=== PATIENT | male | born 1960 | race Caucasian/White ===

== ENCOUNTER 2020-02-05 04:58 | Emergency (ER) | payer OTHER ==
[2020-02-05] MEDS ORDERED: Acetaminophen/oxyCODONE 325-10 MG Tab PO ONE (05:46)
--- NOTE | 2020-02-05 06:23 | CT ---
INDICATION: Fall. LOC. Headache. COMPARISON: None TECHNIQUE: CT examination of the head was performed as axial sections without intravenous contrast. Images were obtained from the vertex of the skull through the skull base. Please note that all CT scans at this facility use dose modulation, iterative reconstruction, and/or weight-based dosing when appropriate to reduce radiation dose to as low as reasonably achievable. FINDINGS: The brain shows no sign of mass lesion, mass effect, hemorrhage, or edema. The ventricles and sulci are normal in appearance for the patient`s age. The visualized portions of the orbits are normal in appearance. The osseous structures are normal in their appearance with no sign of abnormality in the skull base or calvarium. IMPRESSION: Normal unenhanced head CT. Please note that all CT scans at this facility use dose modulation, iterative reconstruction, and/or weight-based dosing when appropriate to reduce radiation dose to as low as reasonably achievable. Dictated by Harsh Lorenzana MD @ Feb 05 2020 6:18AM Signed by Dr. Harsh Lorenzana @ Feb 05 2020 6:20AM
--- NOTE | 2020-02-05 06:25 | CT ---
INDICATION: Trauma. LOC. Neck pain COMPARISON: None TECHNIQUE: CT examination of the cervical spine is performed without contrast using spiral technique. Thin axial, sagittal and coronal reconstructions were made. Please note that all CT scans at this facility use dose modulation, iterative reconstruction, and/or weight-based dosing when appropriate to reduce radiation dose to as low as reasonably achievable. FINDINGS: : There is no malalignment. There is no lytic or blastic lesion, fracture or dislocation identified. Mild degenerative changes are noted. The lung apices appear normal. There are atherosclerotic vascular calcifications. IMPRESSION: No visible acute posttraumatic finding. Please note that all CT scans at this facility use dose modulation, iterative reconstruction, and/or weight-based dosing when appropriate to reduce radiation dose to as low as reasonably achievable. Dictated by Harsh Lorenzana MD @ Feb 05 2020 6:20AM Signed by Dr. Harsh Lorenzana @ Feb 05 2020 6:22AM
[2020-02-05 07:00] LABS: BLOOD UREA NITROGEN,BUN 21 mg/dL (7.0-18.0); CARBON DIOXIDE,CO2 25.7 mmol/L (21.0-32.0); CHLORIDE,CL 105 mmol/L (98-107); GLUCOSE RANDOM 114 mg/dL (74-106); POTASSIUM,K 3.9 mmol/L (3.5-5.1); SODIUM,NA 140 mmol/L (136-148)
[2020-02-05] MEDS ORDERED: Ibuprofen 600 MG Tab PO ONE (07:46)
[2020-02-05] MEDS ORDERED: Iopamidol 755 MG/ML 200 ML Multipack Bottle IVPUSH ONE (07:52)
--- NOTE | 2020-02-05 08:10 | CT ---
CT thoracic spine Technique: Multiple axial sections through the thoracic spine were obtained. Reconstructed coronal and sagittal images were obtained. Findings: Mild scattered endplate osteophytes are seen within the lower thoracic spine. Mild disc space narrowing seen within the lower thoracic spine. Vertebral body heights are maintained. No acute fracture line is appreciated. No abnormal subluxation is seen. No bony central canal stenosis is seen. Neural foramina show no bony stenosis. Impression: 1. Mild degenerative change. 2. Nothing acute is appreciated on CT study of the thoracic spine. Diagnostic code #2 Study was dictated in MDT
--- NOTE | 2020-02-05 08:13 | CT ---
CT lumbar spine Technique: Multiple axial sections through the lumbar spine were obtained. Reconstructed coronal and sagittal images were obtained. Comparison: No prior lumbar spine imaging. Findings: Mild disc space narrowing is noted at T10-T11 and T11-T12. Scattered endplate osteophytes are seen within the lower thoracic and lumbar spine. Vacuum phenomena is noted within the L5-S1 disc. No acute fracture line is seen. Degenerative apophyseal change is scattered within the lumbar spine. Vacuum phenomena is noted within the apophyseal joints at L2-3. No abnormal subluxation is appreciated. Impression: 1. Mild scattered degenerative change. 2. Nothing acute is appreciated on CT study of the lumbar spine. Diagnostic code #2 Study was dictated in MDT
--- NOTE | 2020-02-05 08:17 | CT ---
CT chest Technique: Multiple axial sections were obtained from above the lung apices inferiorly through the lung bases. Intravenous contrast was utilized. Reconstructed coronal and sagittal images were reviewed. Findings: Mediastinum and hilar regions show no adenopathy. Atherosclerotic calcifications seen within the thoracic aorta. Normal-sized lymph nodes seen within the pretracheal region. No pericardial thickening is seen. Visualized upper abdominal structures shows no discrete abnormality. No axillary adenopathy is appreciated. Lung window settings were reviewed. Mild dependent atelectasis is noted posteriorly within both lungs. Lungs otherwise are clear with no acute parenchymal change. Slight linear scarring is noted within the lingula. Bone window settings were reviewed. No discrete sternal fracture is appreciated. No rib fracture is appreciated. Impression: 1. Findings believed to be incidental as noted above. 2. Nothing acute is appreciated on CT study of the chest. Diagnostic code #2 Study was dictated in MDT
--- NOTE | 2020-02-05 08:31 | EDM.PDOC ---
ED HPI GENERAL MEDICAL PROBLEM - General Chief Complaint: Neck Problem Stated Complaint: FELL AT WORK AND LANDED ON HEAD Time Seen by Provider: 02/05/20 05:57 Source of Information: Reports: Patient History Limitations: Reports: No Limitations - History of Present Illness INITIAL COMMENTS - FREE TEXT/NARRATIVE: 59-year-old gentleman no medical problems presented to ER after he fell. 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 [place] back hit his head, after the fallLOC, got up dizzy then a worker found him. unclear how long he was down for. With the fall he developed chest pain and neck pain. no dyspnea. the pain in chest is right at the sternum. worst with movement and palpation. non radiating. the neck pain is not associated with weakness and numbness. he has not had any vomiting or vision changes. no other associated symptoms. neck/chest Pain Score (Numeric/FACES): 8 - Related Data Allergies Allergy/AdvReac Type Severity Reaction Status Date / Time No Known Allergies Allergy Verified 02/05/20 05:11 Home Meds: Home Meds Cyclobenzaprine [Flexeril] 5 mg PO Q6HR PRN #8 tab 02/05/20 [Rx] Ibuprofen 400 mg PO Q6HR PRN #30 tablet 02/05/20 [Rx] Past Medical History HEENT History: Reports: Cataract Cardiovascular History: Reports: Hypertension Respiratory History: Reports: None Gastrointestinal History: Reports: None Genitourinary History: Reports: None Musculoskeletal History: Reports: None Neurological History: Reports: None Psychiatric History: Reports: None Endocrine/Metabolic History: Reports: None Insulin Pump Model and Floral Arranger: None Hematologic History: Reports: None Immunologic History: Reports: None Oncologic (Cancer) History: Reports: None Dermatologic History: Reports: None - Infectious Disease History Infectious Disease History: Reports: None - Past Surgical History Head Surgeries/Procedures: Reports: None HEENT Surgical History: Reports: Cataract Surgery Musculoskeletal Surgical History: Reports: Hip Replacement, Other (See Below) Other Musculoskeletal Surgeries/Procedures:: Back Surgery Social & Family History - Family History Family Medical History: Noncontributory - Tobacco Use Smoking Status *Q: Never Smoker - Caffeine Use Caffeine Use: Reports: Tea - Recreational Drug Use Recreational Drug Use: No ED ROS GENERAL - Review of Systems Review Of Systems: Comprehensive ROS is negative, except as noted in HPI. ED EXAM, HEAD INJURY - Physical Exam Exam: See Below Exam Limited By: No Limitations General Appearance: Alert, WD/WN, No Apparent Distress Head: Normocephalic, Scalp Abrasions (occiput ) Nexus Criteria: No: Posterior, Midline Cervical Tenderness, Evidence of Intoxication, Altered Level of Consciousness, Focal Neurological Deficit, Painful Distraction Injuries Eyes: Bilateral Eye: EOMI, PERRL Ears: Normal External Exam Neck: Tenderness, Other (paraspinal tenderness ) Respiratory: No Respiratory Distress, Lungs Clear, Normal Breath Sounds, No Accessory Muscle Use, Other (tenderness to palpation over silver dollar size area in the mid sternum ) Cardiovascular: Normal Peripheral Pulses, Regular Rate, Rhythm, No Edema, No Gallop, No JVD, No Murmur, No Rub GI/Abdominal Exam: Soft, Non-Tender, No Distention Back Exam: Normal Inspection, Full Range of Motion, Paraspinal Tenderness (in the lumbar region ). No: CVA Tenderness (L), CVA Tenderness (R), Vertebral Tenderness Neurologic: No Motor/Sensory Deficits, Alert, Normal Mood/Affect, Oriented x 3. No: Abnormal Cerebellar Tests, Aphasia, Motor Weakness, Sensory Deficit Skin: Normal Color - [place] Coma Score Best Eye Response (Vandana): (4) Open Spontaneously Best Verbal Response ([place]): (5) Oriented Best Motor Response (Vandana): (6) Obeys Commands Vandana Total: 15 EKG INTERPRETATION Rhythm: NSR P-Wave: Present ST-T: Normal QT: Normal Course - Vital Signs Last Recorded V/S: Last Vital Signs Temp 97.9 F 02/05/20 05:00 Pulse 61 02/05/20 07:50 Resp 16 02/05/20 07:50 BP 158/93 H 02/05/20 07:50 Pulse Ox 97 02/05/20 07:50 - Orders/Labs/Meds Orders: Active Orders 24 hr Category Date Time Status EKG 12 Lead [EKG Documentation Completion] [RC] STAT Care 02/05/20 05:40 Active Labs: Laboratory Tests 02/05/20 02/05/20 Range/Units 06:15 06:15 WBC 7.86 (4.0-11.0) K/uL RBC 4.91 (4.50-5.90) M/uL Hgb 14.8 (13.0-17.0) g/dL Hct 44.3 (38.0-50.0) % MCV 90.2 (80.0-98.0) fL MCH 30.1 (27.0-32.0) pg MCHC 33.4 (31.0-37.0) g/dL RDW Std Deviation 43.6 (28.0-62.0) fl RDW Coeff of Sherrie 13 (11.0-15.0) % Plt Count 188 (150-400) K/uL MPV 11.70 (7.40-12.00) fL Neut % (Auto) 64.6 (48.0-80.0) % Lymph % (Auto) 20.2 (16.0-40.0) % [place] % (Auto) 12.7 (0.0-15.0) % Eos % (Auto) 1.9 (0.0-7.0) % Baso % (Auto) 0.6 (0.0-1.5) % Neut # (Auto) 5.1 (1.4-5.7) K/uL Lymph # (Auto) 1.6 (0.6-2.4) K/uL [place] # (Auto) 1.0 H (0.0-0.8) K/uL Eos # (Auto) 0.2 (0.0-0.7) K/uL Baso # (Auto) 0.1 (0.0-0.1) K/uL Nucleated RBC % 0.0 /100WBC Nucleated RBCs # 0 K/uL Sodium 140 (136-148) mmol/L Potassium 3.9 (3.5-5.1) mmol/L Chloride 105 (98-107) mmol/L Carbon Dioxide 25.7 (21.0-32.0) mmol/L BUN 21 H (7.0-18.0) mg/dL Creatinine 1.1 (0.8-1.3) mg/dL Est Cr Clr Drug Dosing 70.52 mL/min Estimated GFR (MDRD) > 60.0 ml/min Glucose 114 H (74-106) mg/dL Calcium 9.2 (8.5-10.1) mg/dL Total Bilirubin 0.6 (0.2-1.0) mg/dL AST 42 H (15-37) IU/L ALT 40 (14-63) IU/L Alkaline Phosphatase 57 (46-116) U/L Troponin I < 0.050 (0.000-0.056) ng/mL Total Protein 7.3 (6.4-8.2) g/dL Albumin 3.7 (3.4-5.0) g/dL Globulin 3.6 (2.6-4.0) g/dL Albumin/Globulin Ratio 1.0 (0.9-1.6) Meds: Medications Discontinued Medications Generic Name Dose Route Start Last Admin Trade Name Radha PRN Reason Stop Dose Admin Ibuprofen 600 mg 02/05/20 07:46 02/05/20 08:00 Motrin PO 02/05/20 07:47 600 mg ONETIME ONE Administration Iopamidol 75 ml 02/05/20 07:52 02/05/20 07:53 Isovue Multipack-370 (76%) IVPUSH 02/05/20 07:53 75 ml ONETIME ONE Administration Oxycodone/Acetaminophen 1 tab 02/05/20 05:46 02/05/20 06:14 Percocet 325-10 Mg PO 02/05/20 05:47 1 tab ONETIME ONE Administration - Re-Assessments/Exams Free Text/Narrative Re-Assessment/Exam: 02/05/20 08:50 after pain control patient felt much improved.imaging negative for any traumatic injuries. C spine without fractures, CTH no acute findings. CT chest nothing acute as well. no thoracic or lumbar fractures either. C collar cleared after the patient had negative imaging, normal neuro exam, and no midline ttp. had left sided paraspinal tenderness in ther cervical region. patient felt improved prior to discharge. return precautions were discussed. told him to return to ed if he devloped any weakness, numbness, wrosening chest pain, sob, worsening headache, vomiting, vision changes, changes in mental status, unbearable pain, incontinence or if he had any concerns. the chest discomfort was unlikely to be cardiac likely from a contusion or muscle pull from the fall (worst with palpation and movement). CT chest negative , ecg no ischemic changes. distal pulses were equal throughout. 02/05/20 08:51 02/05/20 08:53 02/05/20 08:54 Departure - Departure Time of Disposition: 08:29 Disposition: Home, Self-Care 01 Clinical Impression: Head injury, Contusion, Neck injury - Discharge Information Prescriptions: Cyclobenzaprine [Flexeril] 5 mg PO Q6HR PRN #8 tab PRN Reason: Muscle Spasm Ibuprofen 400 mg PO Q6HR PRN #30 tablet PRN Reason: Pain Instructions: Head Injury, Adult, [id number], Cervical Sprain, [id number] Referrals: PCP,None [Primary Care Provider] - Forms: ED Department Discharge Additional Instructions: return to ED if you develop any chest pain or shortness of breath. Return to ED if you develop unbearable headache vomiting mental status changes weakness numbness. incontinence unbearable pain or any concerns. The following information is given to patients seen in the emergency department who are being discharged to home. This information is to outline your options for follow-up care. We provide all patients seen in our emergency department with a follow-up referral. The need for follow-up, as well as the timing and circumstances, are variable depending upon the specifics of your emergency department visit. If you don't have a primary care physician on staff, we will provide you with a referral. We always advise you to contact your personal physician following an emergency department visit to inform them of the circumstance of the visit and for follow-up with them and/or the need for any referrals to a consulting specialist. The emergency department will also refer you to a specialist when appropriate. This referral assures that you have the opportunity for follow-up care with a specialist. All of these measure are taken in an effort to provide you with optimal care, which includes your follow-up. Under all circumstances we always encourage you to contact your private physician who remains a resource for coordinating your care. When calling for follow-up care, please make the office aware that this follow-up is from your recent emergency room visit. If for any reason you are refused follow-up, please contact the [facility] Emergency Department at and asked to speak to the emergency department charge nurse. Can return to work when you are asymptomatic. Take ibuprofen 400 mg every 6 hours as needed for pain Sepsis Event Note - Evaluation Sepsis Screening Result: No Definite Risk - Focused Exam Vital Signs: Vital Signs Temp Pulse Resp BP Pulse Ox 02/05/20 07:50 61 16 158/93 H 97 02/05/20 06:20 61 18 160/86 H 96 03/20/20 05:00 97.9 F 69 18 165/89 H 95 Date Exam was Performed: 02/05/20 Time Exam was Performed: 08:51 - My Orders Last 24 Hours: My Active Orders 02/05/20 05:40 EKG 12 Lead [EKG Documentation Completion] [RC] STAT - Assessment/Plan Last 24 Hours: My Active Orders 02/05/20 05:40 EKG 12 Lead [EKG Documentation Completion] [RC] STAT
== END 2020-02-05 09:15 | disposition home or self-care (01) ==
LOC: MW.ED 04:58
DX: S06.9X9A Unspecified intracranial injury with loss of consciousness of unspecified duration, initial encounter (principal); S00.01XA Abrasion of scalp, initial encounter; S19.9XXA Unspecified injury of neck, initial encounter; I10 Essential (primary) hypertension; W19.XXXA Unspecified fall, initial encounter; Y99.0 Civilian activity done for income or pay
CPT/HCPCS: 36415; 70450; 71260; 72125; 72128; 72131; 80053; 84484; 85025; 93005; 99285; A9270; Q9967